=== PATIENT | male | born 1950 | race Asian ===

== ENCOUNTER 2021-09-07 13:18 | Outpatient (CLI) | payer MEDICARE, OTHER ==
[2021-09-07] MEDS ORDERED: GADOBUTROL 7.5 MMOL/7.5 ML VIAL ONE (13:44)
[2021-09-07] MEDS ORDERED: GADOBUTROL 7.5 MMOL/7.5 ML VIAL IVP ONE (16:14)
--- NOTE | 2021-09-08 11:52 | MRI Report ---
PROCEDURE: Lumbar Spine W/WO INDICATIONS: SCIATICA CONTRAST: IV CONTRAST: Gadavist ml: 6.3 TECHNIQUE: Noncontrast sagittal T1 spin echo and T2 fast spin echo, sagittal STIR, axial T1 and T2 fast spin ech o through the lumbar spine. In cases with scoliosis, additional coronal T2 fast spin echo may be per formed. After the administration of contrast, sagittal and axial T1 spin echo with fat saturation th rough the lumbar spine. COMPARISON: None. FINDINGS: Normal lumbar vertebral body height and alignment. There is no suspicious focal marrow signal abnorma lity. Discogenic marrow edema at the opposing L2-L3 endplates on the left, with corresponding mild en hancement. Normal position and appearance of the conus. Prevertebral and paraspinous soft tissues are normal. No suspicious enhancement after IV contrast administration. T12-L1: No spinal canal or neural foraminal stenosis. L1-L2: No spinal canal or neural foraminal stenosis. L2-L3: Disc bulge flattens the ventral thecal sac without mass effect upon the traversing L3 nerve roots. No spinal canal stenosis. Foraminal components of the disc bulge contribute to mild neural fo raminal narrowing in conjunction with facet hypertrophy. L3-L4: Diffuse disc bulge without mass effect upon the traversing L4 nerve roots. Mild bilateral ne ural foraminal narrowing due to foraminal components of the disc bulge and facet hypertrophy. L4-L5: Diffuse disc bulge and a superimposed broad-based posterior disc protrusion. Disc material a buts the descending L5 nerve roots which are interposed between disc and facet material in the subart icular zones (axial T2 series 701 image 11). Foraminal components of the disc bulge and facet hypertr ophy combine to produce mild bilateral neural foraminal stenosis. L5-S1: No spinal canal or neural foraminal stenosis. Facet hypertrophy. IMPRESSION: Multilevel multifactorial degenerative changes, worst at L4-L5. Possible impingement of the L5 nerve roots within the subarticular zones at this level. Reviewed by: Bhupendra Bowen MD on 09/08/2021 11:51 AM PST Approved by: Bhupendra Bowen MD on 09/08/2021 11:51 AM PST Station ID: [id number]
== END 2021-09-07 13:19 | disposition home or self-care (01) ==
LOC: DI 13:18
PROVIDERS: ATTEND Internal Medicine
DX: M54.31 Sciatica, right side (principal); M47.26 Other spondylosis with radiculopathy, lumbar region; M48.061 Spinal stenosis, lumbar region without neurogenic claudication; M51.16 Intervertebral disc disorders with radiculopathy, lumbar region
CPT/HCPCS: 72158; A9585

== ENCOUNTER 2021-09-28 09:40 | Day surgery (SDC) | payer MEDICARE, OTHER ==
[2021-09-28] MEDS ORDERED: LACTATED RINGERS 1,000 ML IV ONE ×2 (10:00→13:19)
--- NOTE | 2021-09-28 11:36 | ANESTHESIA ---
Pre-Anesthesia VS, & Labs - Diagnosis history of colon polyps - Procedure colonoscopy Vital Signs: Temp Pulse Resp BP Pulse Ox 36.6 C 66 16 140/83 H 99 09/28/21 09:50 09/28/21 09:50 09/28/21 09:50 09/28/21 09:50 09/28/21 09:50 Height: 5 ft 4 in Weight (kg): 62.6 kg Body Mass Index: 23.6 BMI Classification: Healthy weight - NPO >8 hours Home Medications and Allergies Home Medications: Ambulatory Orders Aspirin [Organ Aspirin] 81 mg PO DAILY 09/27/21 Atorvastatin Calcium 40 mg PO DAILY 09/27/21 Lisinopril [Zestril] 20 mg PO DAILY 09/27/21 Loratadine [Allergy Relief] 10 mg PO DAILY 09/27/21 Multivitamin/Iron/Folic Acid [Centrum Adults Tablet] 1 each PO DAILY 09/27/21 Vitamin E (Dl,Tocopheryl Acet) [Vitamin E Oil] 09/27/21 Aspirin [Organ Aspirin] 81 mg PO DAILY 09/27/21 Atorvastatin Calcium 40 mg PO DAILY 09/27/21 Lisinopril [Zestril] 20 mg PO DAILY 09/27/21 Loratadine [Allergy Relief] 10 mg PO DAILY 09/27/21 Multivitamin/Iron/Folic Acid [Centrum Adults Tablet] 1 each PO DAILY 09/27/21 Vitamin E (Dl,Tocopheryl Acet) [Vitamin E Oil] 09/27/21 Allergies/Adverse Reactions: Allergies Allergy/AdvReac Type Severity Reaction Status Date / Time No Known Drug Allergies Allergy Verified 09/27/21 13:05 Anes History & Medical History - Anesthetic History Anesthesia Complications: reports: No previous complications - Medical History Cardiovascular: reports: Hypertension, High cholesterol Pulmonary: reports: None Gastrointestinal: reports: None Urinary: reports: None Neuro: reports: None Musculoskeletal: reports: Osteoarthritis, Gout Endocrine/Autoimmune: reports: None Blood Disorders: reports: None Skin: reports: None Smoking Status: Never smoker Psychosocial: reports: No issues indicated History of Cancer?: No - Surgical History Orthopedic: reports: Spine surgery Exam General: Alert, Oriented x3, Cooperative, No acute distress Dental: WNL Mouth Openin Fingerbreadth Neck Mobility: Normal Mallampati classification: II Thyromental Distance: 4-6 cm Mental/Cognitive Status: Alert/Oriented X3, Normal for patient Plan Anesthesia Type: General, Total IV Consent for Procedure(s) Verified and Reviewed: Yes Code Status: Attempt Resuscitation ASA classification: 2-Mild systemic disease Is this case an emergency?: No
[2021-09-28] MEDS ORDERED: PROPOFOL 500 MG/50 ML 500 MG/50 ML VIAL ONE (11:55)
--- NOTE | 2021-09-28 12:35 | HISTORY & PHYSICAL EXAMINATION ---
Chief Complaint - Chief Complaint Chief Complaint: history of colon polyp History of Present Illness - History Obtained From Records Reviewed: yes History obtained from: pt Exam Limitations: none - History of Present Illness HPI Comment/Other: history of colon polyp about 25 years ago. Last colonoscopy 10 years ago was normal History - Past Medical History Cardiovascular: reports: Hypertension, High cholesterol Respiratory: reports: None Neuro: reports: None Endocrine/Autoimmune: reports: None GI: reports: None : reports: None HEENT: reports: None Psych: reports: None Musculoskeletal: reports: Osteoarthritis, Gout Derm: reports: None MRSA Hx?: No - Past Surgical History Ortho: reports: Spine surgery Meds/Allgy - Home Medications Home Medications: Ambulatory Orders Medication Instructions Recorded Confirmed Aspirin [[place] Aspirin] 81 mg PO DAILY 09/27/21 09/27/21 Atorvastatin Calcium 40 mg PO DAILY 09/27/21 09/27/21 Lisinopril [Zestril] 20 mg PO DAILY 09/27/21 09/27/21 Loratadine [Allergy Relief] 10 mg PO DAILY 09/27/21 09/27/21 Multivitamin/Iron/Folic Acid 1 each PO DAILY 09/27/21 09/27/21 [Centrum Adults Tablet] Vitamin E (Dl,Tocopheryl Acet) 09/27/21 [Vitamin E Oil] - Allergies Allergies/Adverse Reactions: Allergies Allergy/AdvReac Type Severity Reaction Status Date / Time No Known Drug Allergies Allergy Verified 09/27/21 13:05 Review of Systems - Other Findings Other Findings: 10 pt ros as above otherwise unremarkable Exam - Vital Signs Vital Signs: Vital Signs x48h Temp Pulse Resp BP Pulse Ox 09/28/21 09:50 36.6 C 66 16 140/83 H 99 - Physical Exam General Appearance: positive: No acute distress, Alert Eyes Bilateral: positive: PERRL, EOMI ENT: positive: No signs of dehydration Neck: positive: No JVD Respiratory: positive: No respiratory distress, Breath sounds nml Cardiovascular: positive: Regular rate & rhythm Abdomen: positive: Non-tender, No distention Neurologic/Psychiatric: positive: Oriented x3 Conclusion/Plan - Problem List (1) History of adenomatous polyp of colon Conclusion/Plan: plan colonoscopy. parq held and consent obtained
[2021-09-28] MEDS ORDERED: MIDAZOLAM 2 MG/2 ML VIAL ONE (12:38)
[2021-09-28 13:58] VITALS: BP 119/70
--- NOTE | 2021-09-28 14:22 | ANESTHESIA POST OP EVALUATION ---
Anesthesia Post Eval - Post Anesthesia Eval Vitals: Last Vital Signs Temp 36.1 C L 09/28/21 13:55 Pulse 59 L 09/28/21 13:55 Resp 16 09/28/21 13:55 BP 119/70 09/28/21 13:55 Pulse Ox 100 09/28/21 13:55 CV Function Including HR & BP: Stable Pain Control: Satisfactory Nausea & Vomiting: Negative Mental Status: Baseline Respiratory Status: Airway Patent Hydration Status: Satisfactory Anesthesia Complications: None
== END 2021-09-28 09:41 | disposition home or self-care (01) ==
LOC: SDS 09:40
PROVIDERS: ATTEND Surgery
PROC: 0DBK8ZZ Excision of Ascending Colon, Via Natural or Artificial Opening Endoscopic (ICD-10-PCS; principal; 2021-09-28 11:15)
DX: Z12.11 Encounter for screening for malignant neoplasm of colon (principal); D12.2 Benign neoplasm of ascending colon
CPT/HCPCS: 45380; J7120

== ENCOUNTER 2023-04-12 10:03 | Emergency (ER) | payer MEDICARE, OTHER ==
[2023-04-12 10:52] LABS: BASOPHILS # (AUTO) 0.1 10^3/uL (0.0-0.1); BASOPHILS % (AUTO) 0.8 %; EOSINOPHILS % (AUTO) 0.7 %; HCT - HEMATOCRIT 38.8 % (42.0-52.0); HGB - HEMOGLOBIN 13.3 g/dL (14.0-18.0); LYMPHOCYTES # (AUTO) 1.2 10^3/uL (1.5-3.5); LYMPHOCYTES % (AUTO) 19.1 %; MEAN CORPUSCULAR HEMOGLOBIN 30.6 pg (27.0-31.0); MEAN CORPUSCULAR HGB CONC 34.3 g/dL (32.0-36.0); MEAN CORPUSCULAR VOLUME 89.4 fL (80.0-94.0); MEAN PLATELET VOLUME 10.2 fL (7.4-11.4); MONOCYTES # (AUTO) 0.6 10^3/uL (0.0-1.0); MONOCYTES % (AUTO) 9.6 %; NEUTROPHILS # (AUTO) 4.3 10^3/uL (1.5-6.6); NEUTROPHILS % (AUTO) 69.3 %; PLT - PLATELET COUNT 240 10^3/uL (130-450); RED BLOOD COUNT 4.34 10^6/uL (4.70-6.10); RED CELL DISTRIBUTION WIDTH 12.9 % (12.0-15.0); WHITE BLOOD COUNT 6.1 x10^3/uL (4.8-10.8)
[2023-04-12 11:03] LABS: MUDS CUTOFF CONCENTRATIONS CUTOFF CONC BELOW:
[2023-04-12 11:04] LABS: ACETAMINOPHEN 0.7 ug/mL; ALBUMIN 3.9 g/dL (3.2-5.5); ALBUMIN/GLOBULIN RATIO 1.4 (1.0-2.2); ALKALINE PHOSPHATASE 75 IU/L (42-121); ALT ALANINE AMINOTRANSFERASE 54 IU/L (10-60); AST ASPARTATE AMINOTRANSFERASE 36 IU/L (10-42); BILIRUBIN,TOTAL 0.6 mg/dL (0.2-1.0); BUN - BLOOD UREA NITROGEN 12 mg/dL (6-20); CALCIUM 9.3 mg/dL (8.5-10.3); CARBON DIOXIDE - CO2 28 mmol/L (21-32); CHLORIDE 104 mmol/L (101-111); ETOH - ETHANOL < 10.0 mg/dL; GFR - MDRD 73 (>89); GLUCOSE 226 mg/dL (74-104); LIPASE 41 U/L (11-82); SODIUM 136 mmol/L (135-145); TOTAL PROTEIN 6.7 g/dL (6.4-8.9)
[2023-04-12 11:05] LABS: SALICYLATE < 1.5 mg/dL
[2023-04-12 11:13] LABS: BILIRUBIN,URINE NEGATIVE (NEGATIVE); CLARITY,URINE CLEAR (CLEAR); GLUCOSE, URINE (UA) >=1000 mg/dL (NEGATIVE); KETONES,URINE (UA) NEGATIVE (NEGATIVE); LEUKOCYTE ESTERASE, URINE NEGATIVE (NEGATIVE); NITRITE,URINE NEGATIVE (NEGATIVE); OCCULT BLOOD,URINE NEGATIVE (NEGATIVE); PROTEIN,URINE NEGATIVE (NEGATIVE); UROBILINOGEN,URINE 0.2 (NORMAL) E.U./dL (NORMAL)
[2023-04-12 11:19] LABS: THYROID STIMULATING HORMONE 0.95 uIU/mL (0.34-5.60)
[2023-04-12 11:22] LABS: AMPHETAMINE SCREEN,URINE NEGATIVE (NEGATIVE); BARBITURATE SCREEN,UR NEGATIVE (NEGATIVE); BENZODIAZEPINES SCREEN, URINE NEGATIVE (NEGATIVE); COCAINE SCREEN URINE NEGATIVE (NEGATIVE); METHADONE SCREEN, URINE NEGATIVE (NEGATIVE); METHAMPHETAMINES SCREEN, URINE NEGATIVE (NEGATIVE); OPIATE SCREEN, URINE NEGATIVE (NEGATIVE); OXYCODONE SCREEN, URINE NEGATIVE (NEGATIVE); PROPOXYPHENE SCREEN, URINE NEGATIVE (NEGATIVE); THC CANNABINOID SCREEN, URINE NEGATIVE (NEGATIVE); TRICYCLIC ANTIDEPRESSANT,URINE NEGATIVE (NEGATIVE)
[2023-04-12] MEDS ORDERED: SODIUM CHLORIDE 0.9% 1,000 ML IV STA (12:38)
--- NOTE | 2023-04-12 12:41 | ED Physician Documentation ---
PD HPI MHE - Stated complaint Stated Complaint: MHE/SI - Chief complaint Chief Complaint: MHE - History obtained from History obtained from: Patient, Family - History of Present Illness Primary symptom: Depression Timing - onset: How many weeks ago (2-3) Contributing factors: Family Similar symptoms before: Has not had sx before Recently seen: Not recently seen - Additional information Additional information: Malik Morris is a 72-year-old male with a history of hypertension and diabetes who presents to the emergency department today with a 2 to 3-week history of fatigue and listlessness associated with stress and depression. He has never been treated for depression previously does not have a history of depression. He denies suicidality or homicidality. The patient reports general fatigue and lack of energy. He is a diabetic and endorses more frequent nocturnal awakening for urination over the past several weeks. He takes metformin. He has not had prior episodes of dehydration associated with his diabetes. He endorses a diagnosis of prediabetes. Review of Systems Constitutional: reports: Fatigue, Weight Loss. denies: Fever Eyes: denies: Decreased vision Ears: denies: Ear pain Nose: denies: Rhinorrhea / runny nose, Congestion Throat: denies: Sore throat Cardiac: denies: Chest pain / pressure, Palpitations Respiratory: denies: Dyspnea, Cough GI: denies: Nausea, Vomiting, Constipation, Diarrhea : denies: Dysuria, Frequency Skin: denies: Rash Musculoskeletal: denies: Neck pain, Back pain, Extremity pain Neurologic: denies: Generalized weakness, Focal weakness, Numbness Psychiatric: reports: Depressed, Suicidal, Insomnia PD PAST MEDICAL HISTORY - Past Medical History Past Medical History: Yes Cardiovascular: Hypertension, High cholesterol Respiratory: None Neuro: None Endocrine/Autoimmune: None GI: None : None HEENT: None Psych: None Musculoskeletal: Osteoarthritis, Gout Derm: None - Past Surgical History Past Surgical History: Yes Ortho: Spine surgery - Present Medications Home Medications: Ambulatory Orders Medication Instructions Recorded Confirmed Aspirin [[place] Aspirin] 81 mg PO DAILY 09/27/21 09/27/21 Atorvastatin Calcium 40 mg PO DAILY 09/27/21 09/27/21 Lisinopril [Zestril] 20 mg PO DAILY 09/27/21 09/27/21 Loratadine [Allergy Relief] 10 mg PO DAILY 09/27/21 09/27/21 Multivitamin/Iron/Folic Acid 1 each PO DAILY 09/27/21 09/27/21 [Centrum Adults Tablet] Vitamin E (Dl,Tocopheryl Acet) 09/27/21 [Vitamin E Oil] Doxepin [SINEquan] 10 mg PO QPM PRN #20 cap 04/12/23 - Allergies Allergies/Adverse Reactions: Allergies Allergy/AdvReac Type Severity Reaction Status Date / Time No Known Drug Allergies Allergy Verified 04/12/23 10:14 - Social History Does the pt smoke?: No Smoking Status: Never smoker Does the pt drink ETOH?: No Does the pt have substance abuse?: No - Immunizations Immunizations are current?: Yes - POLST Patient has POLST: No PD ED PE NORMAL - Vitals Vital signs reviewed: Yes (hypertensive ) - General General: Alert and oriented X 3, No acute distress, Well developed/nourished, Other (Thin male masked speaks quietly ) - HEENT HEENT: Atraumatic, PERRL, EOMI - Neck Neck: Supple, no meningeal sign, No bony TTP - Cardiac Cardiac: RRR, No murmur - Respiratory Respiratory: No respiratory distress, Clear bilaterally - Abdomen Abdomen: Normal bowel sounds, Soft, Non tender, Non distended, No organomegaly - Back Back: No CVA TTP, No spinal TTP - Derm Derm: Normal color, Warm and dry, No rash - Extremities Extremities: No deformity, No edema - Neuro Neuro: Alert and oriented X 3, creative services producer 2-12 intact, No motor deficit, No sensory deficit, Normal speech Eye Opening: Spontaneous Motor: Obeys Commands Verbal: Oriented GCS Score: 15 - Psych Psych: Other (mood is withdrawn and the affect is flat. ) Results - Vitals Vitals: Vital Signs - 24 hr 04/12/23 04/12/23 04/12/23 10:11 14:32 16:14 Temperature 37.1 C Heart Rate 69 86 57 L Respiratory 20 20 20 Rate Blood Pressure 149/81 H 121/80 115/71 O2 Saturation 97 98 99 Oxygen O2 Source Room air - Labs Labs: Laboratory Tests 04/12/23 04/12/23 04/12/23 10:45 10:45 11:00 WBC 6.1 RBC 4.34 L Hgb 13.3 L Hct 38.8 L MCV 89.4 MCH 30.6 MCHC 34.3 RDW 12.9 Plt Count 240 MPV 10.2 Neut # (Auto) 4.3 Lymph # (Auto) 1.2 L Mcduff[place] # (Auto) 0.6 Eos # (Auto) 0.0 Baso # (Auto) 0.1 Absolute Nucleated RBC 0.00 Nucleated RBC % 0.0 Sodium 136 Potassium 4.0 Chloride 104 Carbon Dioxide 28 Anion Gap 4.0 L BUN 12 Creatinine 1.0 Estimated GFR (MDRD) 73 L Glucose 226 H Calcium 9.3 Total Bilirubin 0.6 AST 36 ALT 54 Alkaline Phosphatase 75 Total Protein 6.7 Albumin 3.9 Globulin 2.8 Albumin/Globulin Ratio 1.4 Lipase 41 TSH 0.95 Urine Color YELLOW Urine Clarity CLEAR Urine pH 6.0 Ur Specific [place] 1.020 Urine Protein NEGATIVE Urine Glucose (UA) >=1000 H Urine Ketones NEGATIVE Urine Occult Blood NEGATIVE Urine Nitrite NEGATIVE Urine Bilirubin NEGATIVE Urine Urobilinogen 0.2 (NORMAL) Ur Leukocyte Esterase NEGATIVE Ur Microscopic Review NOT INDICATED Urine Culture Comments NOT INDICATED Salicylates < 1.5 Urine Opiates Screen NEGATIVE Ur Oxycodone Screen NEGATIVE Urine Methadone Screen NEGATIVE Ur Propoxyphene Screen NEGATIVE Acetaminophen 0.7 Ur Barbiturates Screen NEGATIVE Ur Tricyclics Screen NEGATIVE Ur Phencyclidine Scrn NEGATIVE Ur Amphetamine Screen NEGATIVE U Methamphetamines Scrn NEGATIVE U Benzodiazepines Scrn NEGATIVE Urine Cocaine Screen NEGATIVE U Cannabinoids Screen NEGATIVE Ethyl Alcohol < 10.0 Procedures - IVC sono (time) 1234 Bedside IVC sono: IVC measures (cm) (0.9), IVC collapsed c insp (cm) (complete), Dehydration (est 2 liter deficit) PD Medical Decision Making - ED course Complexity details: reviewed old records, reviewed results, re-evaluated patient, considered differential, d/w patient, d/w family ED course: And reactive but is a 72-year-old male with a history of hypertension and diabetes who presents to the emergency [place] today with a chief complaint of depression and fatigue. My first concern with this patient was his diabetes and elevation in his glucose on his blood work as well as glucose in the urine lead to interrogation of the IVC with POCUS and a diagnosis of dehydration. I provided hydration to the patient with a concern potentially his symptoms were related simply to extended dehydration. After hydration I sought further history from the patient which she was not openly providing previously. There has been infidelity in the marriage recently the is considering leaving the patient does not want to have a relationship with the person he had the infidelity with and does not want his to leave. He has had 1 prior episode 10 years ago in their 27-year marriage. We were able to have social work come into safety plan with the patient and his and she was able to provide some resources for counseling. It does appear the couple is interested in counseling to save their marriage. Departure - Departure Disposition: 01 Home, Self Care Clinical Impression: Dehydration Depression Qualifiers: Depression Type: unspecified Qualified Code(s): F32.A - Depression, unspecified Condition: Stable Instructions: ED Dehydration, ED Depression Follow-Up: [facility] [Provider Group] Prescriptions: Doxepin [SINEquan] 10 mg PO QPM PRN #20 cap PRN Reason: Insomnia Comments: Malik, today it looks like there is some depression related to the stress in your life and you are not having an easy time sleeping. [place] E [place]ed this for help with sleeping. The social worker masters has provided resources for counselling and this will likely be quite helpful for your specific issues. Follow the safety plan as outlined by the social worker masters. We did find you were dehydrated and this is a result of your diabetes being uncontrolled. Follow up with your primary care doctor about your diabetes. Discharge Date/Time: 04/12/23 16:17
[2023-04-12 16:17] VITALS: BP 115/71; O2SAT 99
== END 2023-04-12 16:17 | disposition home or self-care (01) ==
LOC: ED 10:03
DX: E86.0 Dehydration (principal); F32.A Depression, unspecified; I10 Essential (primary) hypertension; E11.9 Type 2 diabetes mellitus without complications; E78.00 Pure hypercholesterolemia, unspecified; Z79.82 Long term (current) use of aspirin; Z79.899 Other long term (current) drug therapy
CPT/HCPCS: 36415; 80053; 80306; 80307; 81003; 83690; 84443; 85025; 96360; 96361; 99283; 99284; G0480; 80320; 80329; 81001; 87086

== ENCOUNTER 2023-07-14 08:18 | Emergency (ER) | payer MEDICARE, OTHER ==
[2023-07-14 08:46] VITALS: BP 140/83; O2SAT 99
--- NOTE | 2023-07-14 09:16 | XRAY Report ---
PROCEDURE: Knee 4 View RT INDICATIONS: Trauma TECHNIQUE: 4 views of the knee(s) were acquired. COMPARISON: None. FINDINGS: Bones: No displaced fracture or dislocation. Small lucency within the superior patellar enthesophyte. No dislocation. Mild to moderate degenerative changes. Soft tissues: Suprapatellar edema and possible small effusion. IMPRESSION: There is suprapatellar edema. Mild to moderate degenerative changes and patellar enthesopathy, with a small age-indeterminate lucency at the enthesophyte. No displaced fracture. If there is high concern for further derangement, consider MRI evaluation. Reviewed by: Ozzie Uriarte MD on 07/14/2023 9:15 AM PST Approved by: Ozzie Uriarte MD on 07/14/2023 9:15 AM PST Station ID: [id number]
--- NOTE | 2023-07-14 11:29 | ED Physician Documentation ---
PD HPI LOWER EXT INJURY - Stated complaint Stated Complaint: RT KNEE PX - Chief complaint Chief Complaint: Trauma Ext - History obtained from History obtained from: Patient - Additional information Additional information: 2 days ago he was at the grocery store and walking with a cart. He slipped and his knee hyperextended. It was not so bad until yesterday and now pain is much more severe. No other injuries. No problems with the knee previously. PD PAST MEDICAL HISTORY - Past Medical History Past Medical History: Yes Cardiovascular: Hypertension, High cholesterol Respiratory: None Neuro: None Endocrine/Autoimmune: None GI: None : None HEENT: None Psych: None Musculoskeletal: Osteoarthritis, Gout Derm: None - Past Surgical History Past Surgical History: Yes Ortho: Spine surgery - Present Medications Home Medications: Ambulatory Orders Medication Instructions Recorded Confirmed Aspirin [[place] Aspirin] 81 mg PO DAILY 09/27/21 09/27/21 Atorvastatin Calcium 40 mg PO DAILY 09/27/21 09/27/21 Lisinopril [Zestril] 20 mg PO DAILY 09/27/21 09/27/21 Loratadine [Allergy Relief] 10 mg PO DAILY 09/27/21 09/27/21 Multivitamin/Iron/Folic Acid 1 each PO DAILY 09/27/21 09/27/21 [Centrum Adults Tablet] Vitamin E (Dl,Tocopheryl Acet) 09/27/21 [Vitamin E Oil] Doxepin [SINEquan] 10 mg PO QPM PRN #20 cap 04/12/23 HYDROcod/ACETAM 5/325 [[place] 5/325] 1 - 2 tab PO Q6H PRN #20 tablet 07/14/23 - Allergies Allergies/Adverse Reactions: Allergies Allergy/AdvReac Type Severity Reaction Status Date / Time No Known Drug Allergies Allergy Verified 04/12/23 10:14 - Social History Does the pt smoke?: No Smoking Status: Never smoker Does the pt drink ETOH?: No Does the pt have substance abuse?: No - Immunizations Immunizations are current?: Yes - POLST Patient has POLST: No PD ED PE NORMAL - Vitals Vital signs reviewed: Yes - General General: Alert and oriented X 3, No acute distress - Extremities Extremities: Other (Right knee is showing an effusion and tender on the medial joint line. No deformity. He does have laxity with anterior drawer testing and a lot of pain with MCL testing) - Neuro Neuro: Alert and oriented X 3, Normal speech Results - Vitals Vitals: Vital Signs - 24 hr 07/14/23 08:37 Temperature 36.8 C Heart Rate 78 Respiratory 16 Rate Blood Pressure 140/83 H O2 Saturation 99 Oxygen O2 Source Room air - Rads (name of study) Three-view x-ray right knee demonstrating suprapatellar edema with degenerative changes. There is enthesophyte Relevant Findings:: Final report received, EMP independent interpretation of test PD Medical Decision Making - ED course ED course: No clear fracture but examination is concerning for a ligamentous injury and he was placed in immobilizer and a walker with pain medicine, none here as he was driving. With orthopedic follow-up. Departure - Departure Disposition: Home, Self Care Clinical Impression: Internal derangement of right knee Condition: Good Record reviewed to determine appropriate education?: Yes Instructions: ED Knee Injury Cruciate Ligament Follow-Up: [facility] [Provider Group] Prescriptions: HYDROcod/ACETAM 5/325 [[place] 5/325] 1 - 2 tab PO Q6H PRN #20 tablet PRN Reason: Pain Comments: As discussed, the examination is strongly suggestive of a ligamentous injury in your knee. There is no obvious fracture. Wear the knee immobilizer when up and around but you do not need to have to wear it in bed. Follow-up with the orthopedic office, calling today or Monday for an appointment. I sent the prescription electronically to the [facility] in [place]. I am prescribing a short course of narcotic pain medication for you. These are potentially dangerous and addictive medications that should be used carefully. These medications may constipate you. Take an [id number] stool softener (docusate) twice daily with plenty of water while taking these medications. If you go 24 hours without a bowel movement, take [id number] miralax, per package instructions. Do not drink or drive while taking these medications. If you received narcotic or sedating medications while in the emergency department, do not drive for 24 hours. Store this medication in a safe, secure place and out of reach of children. It is a violation of federal law to give or sell this medication to another person or to use in a manner other than prescribed. The ED will not refill narcotic prescriptions, including prescriptions lost or stolen. To dispose of unwanted medications: 1. [facility] [employer] provides a drop box for medication in pill form only (no liquids) 8:00 am to 4:30 p.m. Monday-Monday in the lobby of the [facility], [address] [place] [address]. Empty pills into ziplock bag before disposal. Call [phone] for information. 2.[employer] is a free service available to all [facility] residents. Go to [email or web address] Note that many narcotic pain relievers also contain Tylenol/acetaminophen. Please ensure that your total dose of acetaminophen from all sources does not exceed 3 g (3000 mg) per day.
== END 2023-07-14 13:16 | disposition home or self-care (01) ==
LOC: ED 08:18
DX: M23.91 Unspecified internal derangement of right knee (principal); X58.XXXA Exposure to other specified factors, initial encounter; Y93.01 Activity, walking, marching and hiking; Y92.512 Supermarket, store or market as the place of occurrence of the external cause; I10 Essential (primary) hypertension
CPT/HCPCS: 99283; 99284

== ENCOUNTER 2023-07-24 08:00 | Outpatient (CLI) | payer MEDICARE, OTHER ==
--- NOTE | 2023-07-25 15:26 | XRAY Report ---
PROCEDURE: Knee 4 View RT INDICATIONS: RIGHT KNEE PAIN/INJURY TECHNIQUE: 4 views of the knee(s) were acquired. COMPARISON: X-ray knee 07/14/2023 FINDINGS: Bones: No fractures or dislocations. No suspicious bony lesions. Moderate tricompartmental arthri tic change on the right most severe medially. Bicompartmental arthritic change is present on the left . No erosions. As identified on prior exam, lucency is noted within the patellar osteophyte. Soft tissues: Minimal knee joint effusion, markedly decreased. No suspicious soft tissue calcificati ons or masses. IMPRESSION: Markedly decreased effusion. Arthritic changes bilaterally. Stable appearance of lucency within the patellar osteophyte, suspected to be chronic. Reviewed by: Phyllis Holland MD on 07/25/2023 3:24 PM PST Approved by: Phyllis Holland MD on 07/25/2023 3:24 PM PST Station ID: [id number]
== END 2023-07-24 23:59 | disposition home or self-care (01) ==
LOC: DI.WOS 08:00
PROVIDERS: ATTEND Physician Assistant Surgical
DX: M25.461 Effusion, right knee (principal); M17.0 Bilateral primary osteoarthritis of knee; M25.761 Osteophyte, right knee